=== PATIENT | female | born 1960 | race Hispanic/Latino ===

== ENCOUNTER → 2019-02-16 | Outpatient (CLI) | payer OTHER | LOC: YCFC.O 10:02 | PROVIDERS: ATTEND Nurse Practitioner | DX: Z00.01 Encounter for general adult medical examination with abnormal findings (principal) ==

== ENCOUNTER → 2019-02-23 | Outpatient (CLI) | payer OTHER | LOC: LAB.O 10:52 | PROVIDERS: ATTEND Nurse Practitioner | DX: R31.9 Hematuria, unspecified (principal) ==

== ENCOUNTER → 2019-03-21 | Outpatient (CLI) | payer OTHER ==
--- NOTE | 2019-03-21 15:42 | CT ---
EXAM DESCRIPTION: Abdomen/Pelvis w/wo Contrast CLINICAL HISTORY: Microscopic hematuria COMPARISON: None. TECHNIQUE: Spiral, axial 5 mm scans through the abdomen and pelvis without contrast. Arterial phase axial scans at 3 mm intervals through the abdomen and pelvis. Coronal 2.5 mm reconstructions. Venous phase axial scans at 3 mm interval through the abdomen. Coronal 2.5 mm Reconstructions. Delayed prone axial scans at 3 mm intervals through the abdomen and pelvis. Coronal 2.5 mm reconstructions. 3D volume rendering image. Total Exam DLP: 3763.8 mGy-cm. This exam was performed according to our departmental CT dose-optimization program which includes automated exposure control, adjustment of the mA and/or kV according to patient size and/or use of iterative reconstruction technique; to reduce radiation dose to as low as reasonably achievable (ALARA). FINDINGS: Kidneys: 1.3 cm cyst anterior cortex laterally at the level of the pelvis. No radiodense stones. No hydronephrosis or perinephric fluid. Normal caliber of the ureters with no radiodense stones. Ureters contain IV contrast to the level of the pelvis on the delayed prone images. Pelvic organs: Urinary bladder wall is thickened with no radiodense stones. Uterus is anteverted with bilateral ovaries small, normal enhancement with no adnexal mass. No free fluid. Upper abdominal organs and mesentery: Fatty density of the liver with long axis right lobe 18.2 cm. Normal ducts and enhancement. Other upper abdominal organs are negative. No fatty stranding fascial thickening free air or free fluid. Bowel: Minimal gas throughout the small bowel with no distended segments or large air-fluid levels. Terminal ileum negative. Appendix not seen. Diverticula in the mid descending colon to the sigmoid colon with no complications.. Aorta, spine, and bony pelvis: Normal caliber of the abdominal aorta with minimal atherosclerotic changes. Endplate spurs at some levels of the lumbar spine. No lytic or blastic lesions.. Abdominal pelvic blackmon and soft tissues, lung and pleural bases: Scattered blebs in the lung parenchyma with no infiltrate or pleural effusion. Calcification in the upper right buttock adipose tissues. IMPRESSION: 1. 1.3 cm cyst in the left kidney. Bilateral kidneys otherwise unremarkable. Minimal wall thickening in the urinary bladder could represent cystitis or UTI. No perirenal fluid or free fluid in the pelvis. No pelvic or perirenal mass. 2. Minimal steatosis of the liver with mild enlargement. 3. Diverticulosis in the left colon with no complications. Electronically signed by: Genaro Kenny MD 03/21/2019 3:39 PM CDT
== END ==
LOC: CT 08:49
PROVIDERS: ATTEND Nurse Practitioner
DX: N32.89 Other specified disorders of bladder (principal); N28.1 Cyst of kidney, acquired; K76.0 Fatty (change of) liver, not elsewhere classified; K57.30 Diverticulosis of large intestine without perforation or abscess without bleeding

== ENCOUNTER → 2019-03-27 | Outpatient (CLI) | payer OTHER ==
--- NOTE | 2019-03-28 16:16 | MAM ---
EXAM DESCRIPTION: 3D Screening BILATERAL : Digital Mammography. CLINICAL HISTORY: 58 years Female ANNUAL SCREENING . No personal or family history of breast cancer. No complaints. Childbirth. Postmenopausal 6 years. No HRT. Lifetime risk of developing breast cancer (Tyrer-Cuzick model)(%): 3.5. COMPARISON: Baseline study at this facility. No prior reports available. TECHNIQUE: Bilateral CC and MLO projection full-field images, digital tomosynthesis mammographic technique. Bilateral digital 2-D full-field MLO images. CAD not available for tomosynthesis or 2-D images. FINDINGS: The breast parenchymal density pattern is: Heterogeneously dense breast tissue, which may obscure small masses. No skin thickening or nipple retraction. Bilateral axillary lymph nodes. Bilateral intramammary nodular densities. Bilateral solitary microcalcifications. Focal asymmetry in the upper outer quadrant middle third right breast at the 9:00-10:00 position, approximately 9 cm from the nipple. Not associated with microcalcifications. No focal, stellate mass or density, , and no suspicious microcalcifications bilaterally. No focal asymmetry in the left breast. IMPRESSION: BI-RADS CATEGORY: 0 - INCOMPLETE- Need additional imaging evaluation. FOLLOW-UP: Recall for additional imaging: Targeted right breast ultrasound region of interest.. Optional diagnostic digital mammography of the right breast if indicated by ultrasound images. Written communication concerning the IMPRESSION and Follow-up, will be mailed to the patient and referring health care provider. Electronically signed by: Genaro Kenny MD 03/28/2019 4:14 PM CDT
== END ==
LOC: MAMMO 08:30
PROVIDERS: ATTEND Family Medicine
DX: Z12.31 Encounter for screening mammogram for malignant neoplasm of breast (principal)

== ENCOUNTER → 2019-04-11 | Outpatient (CLI) | payer OTHER ==
--- NOTE | 2019-04-12 15:08 | US ---
EXAM DESCRIPTION: Breast,Right: Ultrasound CLINICAL HISTORY: 58 yearsFemaleABNORMAL MAMMO . Focal asymmetry upper outer quadrant middle third right breast. COMPARISON: Bilateral screening digital breast tomosynthesis 03/27/2019. TECHNIQUE: Transcutaneous scanning of the right breast utilizing augustine-scale and Doppler modes. Scanning performed by the curtain roller assembler and Dr. Kenny. FINDINGS: Ultrasound: Scanning of the upper-outer quadrant of the right breast, middle third. Emphasis on 9 cm from the nipple. Heterogeneous fibroglandular and fatty echotextures, slightly more fibroglandular. At 9 cm from the nipple, is a hypoechoic circumscribed microlobulated mass with septation and minimal wall thickening. Mostly posterior acoustic enhancement with wider than tall orientation. Dimensions are 6.1 x 6.9 x 3.1 mm with no vascularity. Most likely a complicated cyst or lymph node. No dominant solid mass or simple cyst. No large calcifications or parenchymal edema. No overlying skin changes. IMPRESSION: Benign exam. BIRAD CATEGORY: 2 BENIGN FINDINGS. RECOMMENDATIONS: FOLLOW UP: Return to routine digital bilateral mammographic screening, one year interval from March 2019. Written communication explaining the IMPRESSION and follow-up, will be mailed to the patient and referring health care provider. The FINDINGS and the FOLLOW-UP plan were reviewed in person with the patient after the examination. According to the [employer], yearly mammograms are recommended starting at age 40 and continuing as long as a woman is in good health. Any breast change noted on a breast self-exam should be reported promptly to the patient's healthcare provider. Breast MRI is recommended for women with an approximately 20-25% or greater lifetime risk of breast cancer, including women with a strong family history of breast or ovarian cancer and women who have been treated for Hodgkin's disease. A negative mammographic report should not delay tissue diagnosis in patients with significant clinical history or physical findings. Extremely dense breast tissue limits the sensitivity of digital mammography. Electronically signed by: Genaro Kenny MD 04/12/2019 3:06 PM CDT
== END ==
LOC: MAMMO 08:30
PROVIDERS: ATTEND Family Medicine
DX: R92.8 Other abnormal and inconclusive findings on diagnostic imaging of breast (principal)